=== PATIENT | male | born 1970 | race Caucasian/White ===

== ENCOUNTER 2021-09-10 19:17 | Emergency (ER) | payer OTHER ==
[2021-09-10] MEDS ORDERED: ACETAMINOPHEN TAB 500 MG TAB PO STA (21:47)
[2021-09-10] MEDS ORDERED: SODIUM CHLORIDE 0.9% 50 ML IVPB ONE (22:30)
[2021-09-10] MEDS ORDERED: BAMLANIVIMAB (EUA) 700 MG, ETESEVIMAB (EUA) 1,400 MG in SODIUM CHLORIDE 0.9% 50 ML IVPB ONE (23:00)
--- NOTE | 2021-09-10 23:31 | ED ---
General Adult HPI - General Chief complaint: Upper Respiratory Infection Stated complaint: chills, headache, body aches Time Seen by Provider: 09/10/21 20:51 Source: patient Mode of arrival: ambulatory Limitations: no limitations - History of Present Illness Initial comments: This is a 50-year-old male who presents to the emergency department this evening with complaints of fever, chills, body aches, and cough. Patient states his symptoms began 5-7 days. Has been taking OTC medications with minimal improvement. Endorses alteration in taste and smell. He has not received the Covid vaccinate and reports recent exposure. Denies dizziness, shortness of breath, chest pain, abdominal pain, nausea, vomiting, diarrhea, or dysuria. - Related Data Home Medications Medication Instructions Recorded Confirmed Acetaminophen Tab [Tylenol Tab] 1,000 mg PO Q6H PRN 09/10/21 09/10/21 D-Methorphan/PE/Acetaminophen 2 cap PO Q6H PRN 09/10/21 09/10/21 [Vicks Dayquil Liquicaps] Multivitamins, Thera [Multivitamin 1 tab PO DAILY 09/10/21 09/10/21 (formulary)] traZODone HCL 150 mg PO HS 09/10/21 09/10/21 valACYclovir HCL [Valtrex] 1,000 mg PO TID PRN 09/10/21 09/10/21 Allergies Allergy/AdvReac Type Severity Reaction Status Date / Time No Known Allergies Allergy Verified 09/10/21 23:32 Review of Systems ROS Statement: Those systems with pertinent positive or pertinent negative responses have been documented in the HPI. ROS Other: All systems not noted in ROS Statement are negative. Past Medical History Past Medical History: No Reported History History of Any Multi-Drug Resistant Organisms: None Reported Past Surgical History: Orthopedic Surgery Past Psychological History: No Psychological Hx Reported Smoking Status: Former smoker Past Alcohol Use History: Occasional Past Drug Use History: None Reported General Exam Limitations: no limitations (Well-developed, well-nourished male in no acute distress. Initial temperature 99.2, pulse 83, respirations 20, blood pressure 134/63, pulse ox 98% on room air.) General appearance: alert, in no apparent distress ENT exam: Present: normal exam, normal oropharynx, mucous membranes moist Respiratory exam: Present: normal lung sounds bilaterally, other (Nonproductive congested cough noted). Absent: respiratory distress, wheezes, rales, rhonchi, stridor Cardiovascular Exam: Present: regular rate, normal rhythm, normal heart sounds. Absent: systolic murmur, diastolic murmur, rubs, gallop, clicks GI/Abdominal exam: Present: soft, normal bowel sounds. Absent: distended, tenderness, guarding, rebound, rigid Back exam: Absent: CVA tenderness (R), CVA tenderness (L) Neurological exam: Present: alert, oriented X3, CN II-XII intact Psychiatric exam: Present: normal affect, normal mood Skin exam: Present: warm, dry, intact, normal color. Absent: rash Course Vital Signs 09/10/21 09/11/21 19:37 00:43 Temperature 99.2 F 98.8 F Pulse Rate 83 78 Respiratory 20 18 Rate Blood Pressure 134/63 113/87 O2 Sat by Pulse 98 98 Oximetry Medical Decision Making - Medical Decision Making 50-year-old male presents to the emergency department for evaluation of fever, chills, cough, and altered taste and smell. Symptoms began 5-7 days ago. Upon exam, patient is well-appearing and in no acute distress. He is afebrile, not tachypneic, nor tachycardic. SpO2 is 95-100% on room air. Denies shortness of breath or tightness in his chest. Covid test is positive. Monoclonal antibody infusion was discussed with patient, he is agreeable to this. Tolerated infusion without any adverse side effects. Patient will be discharged home to follow up with his primary care provider. Instructed to alternate Tylenol and Motrin as needed for fever. Return parameters were discussed in detail. Patient verbalizes understanding and agrees with this plan. - Lab Data Lab Results 09/10/21 Range/Units 19:41 Coronavirus (PCR) Detected A (Not Detectd) Disposition Clinical Impression: COVID-19, Fever Disposition: HOME SELF-CARE Condition: Stable Instructions (If sedation given, give patient instructions): Coronavirus Disease 2019 (COVID-19), Fever in Adults (ED) Additional Instructions: Rest. Increase fluids. Take Vitamin C, D, and Zinc. Follow up with your PCP for a recheck. Return to the Emergency Department with any new, worsening, or concerning symptoms. Is patient prescribed a controlled substance at d/c from ED?: No Referrals: Carolina Viveros MD [Primary Care Provider] - 1-2 days Time of Disposition: 00:30
[2021-09-11 00:45] VITALS: BP 113/87; PULSE 78; RESP 18; TEMP 98.8
== END 2021-09-11 00:44 | disposition home or self-care (01) ==
LOC: EC 19:17
DX: U07.1 COVID-19 (principal); Z87.891 Personal history of nicotine dependence
CPT/HCPCS: 99283; M0245; 87635

== ENCOUNTER 2023-02-20 11:34 | Emergency (ER) | payer OTHER ==
[2023-02-20 11:55] VITALS: RESP 18; TEMP 97.6
[2023-02-20] MEDS ORDERED: DIPH,PERTUS(ACELL)TETVAC-LF 0.5 ML VIAL IM ONE (12:38)
[2023-02-20] MEDS ORDERED: LIDOCAINE 1% INJ 10MG/ML (30 ML VIAL-PF) SQ ONE (12:38)
--- NOTE | 2023-02-20 12:49 | ED ---
Upper Extremity HPI - General Chief Complaint: Extremity Injury, Upper Stated Complaint: thrumb crushed Time Seen by Provider: 02/20/23 12:24 Source: patient, RN notes reviewed Mode of arrival: ambulatory Limitations: no limitations - History of Present Illness Initial Comments: 52-year-old male presents emergency Department chief complaint of right thumb injury. Patient states that he was hammering a piece of metal states he missed struck his thumb. Patient states he is sent over from [place] for evaluation. He is unsure when his last tetanus was. Patient does have a laceration noted. Denies any paresthesias patient offers no other complaints. - Related Data Home Medications Medication Instructions Recorded Confirmed Acetaminophen Tab [Tylenol Tab] 1,000 mg PO Q6H PRN 09/10/21 09/10/21 D-Methorphan/PE/Acetaminophen 2 cap PO Q6H PRN 09/10/21 09/10/21 [Vicks Dayquil Liquicaps] Multivitamins, Thera [Multivitamin 1 tab PO DAILY 09/10/21 09/10/21 (formulary)] traZODone HCL 150 mg PO HS 09/10/21 09/10/21 valACYclovir HCL [Valtrex] 1,000 mg PO TID PRN 09/10/21 09/10/21 Previous Rx's Medication Instructions Recorded Cephalexin [Keflex] 500 mg PO Q6HR #28 cap 02/20/23 Ibuprofen [Motrin] 600 mg PO Q8HR PRN #20 tab 02/20/23 Allergies Allergy/AdvReac Type Severity Reaction Status Date / Time No Known Allergies Allergy Verified 02/20/23 11:55 Review of Systems ROS Statement: Those systems with pertinent positive or pertinent negative responses have been documented in the HPI. ROS Other: All systems not noted in ROS Statement are negative. Past Medical History Past Medical History: No Reported History History of Any Multi-Drug Resistant Organisms: None Reported Past Surgical History: Orthopedic Surgery Past Psychological History: No Psychological Hx Reported Smoking Status: Current every day smoker Past Alcohol Use History: Rare Past Drug Use History: None Reported General Exam Limitations: no limitations General appearance: alert, in no apparent distress Head exam: Present: atraumatic, normocephalic, normal inspection Respiratory exam: Present: normal lung sounds bilaterally. Absent: respiratory distress, wheezes, rales, rhonchi, stridor Cardiovascular Exam: Present: regular rate, normal rhythm, normal heart sounds. Absent: systolic murmur, diastolic murmur, rubs, gallop, clicks Extremities exam: Present: other (Left thumb distal tip there is near skin avulsion, irregular laceration approximately 2 cm) Skin exam: Present: warm, dry, intact, normal color. Absent: rash Course Vital Signs 02/20/23 02/20/23 11:53 14:49 Temperature 97.6 F 97.6 F Pulse Rate 67 53 L Respiratory 18 18 Rate Blood Pressure 129/94 137/87 O2 Sat by Pulse 98 99 Oximetry Procedures - Laceration Laceration #1 Consent Obtained: verbal consent Indication: laceration Site: hand (Right thumb) Size (cm): 2 Description: stellate, irregular, contaminated Depth: simple, single layer Anesthetic Used: lidocaine 1%, without epi Anesthesia Technique: local infiltration Amount (mls): 4 Pre-repair: wound explored, irrigated extensively, deep structures intact Type of Sutures: nylon Size of Sutures: 4-0 Number of Sutures: 5 Technique: simple, interrupted Patient Tolerated Procedure: well, no complications Medical Decision Making - Medical Decision Making Was pt. sent in by a medical professional or institution (, PA, PRODUCT MANAGEMENT ANALYST, urgent care, hospital, or [place] [facility] facility...) When possible be specific @ -[facility] Did you speak to anyone other than the patient for history (EMS, parent, family, police, friend...)? What history was obtained from this source @ -No Did you review nursing and triage notes (agree or disagree)? Why? @ -I reviewed and agree with nursing and triage notes Were old charts reviewed (outside hosp., previous admission, EMS record, old EKG, old radiological studies, urgent care reports/EKG's, [place] [facility] facility records)? Report findings @ -No old charts were reviewed Differential Diagnosis (chest pain, altered mental status, abdominal pain women, abdominal pain men, vaginal bleeding, weakness, fever, dyspnea, syncope, headache, dizziness, GI bleed, back pain, seizure, CVA, palpatations, mental health, musculoskeletal)? @ -Thumb fracture, thumb laceration, thumb contusion, subungual hematoma EKG interpreted by me (3pts min.). @ -None X-rays interpreted by me (1pt min.). @ -X-ray of the right thumb shows avulsion fracture CT interpreted by me (1pt min.). @ -None done U/S interpreted by me (1pt. min.). @ -None done What testing was considered but not performed or refused? (CT, X-rays, U/S, labs)? Why? @ -None What meds were considered but not given or refused? Why? @ -None Did you discuss the management of the patient with other professionals (professionals i.e. DrBrodie, PA, PRODUCT MANAGEMENT ANALYST, lab, RT, psych nurse, criminal justice social worker, manager medical writing, teacher, information security officer, mental health case manager)? Give summary @ -No Was smoking cessation discussed for >3mins.? @ -No Was critical care preformed (if so, how long)? @ -No Were there social determinants of health that impacted care today? How? (Homelessness, low income, unemployed, alcoholism, drug addiction, transportation, low edu. Level, literacy, decrease access to med. care, snf, rehab)? @ -No Was there de-escalation of care discussed even if they declined (Discuss DNR or withdrawal of care, Hospice)? DNR status @ -No What co-morbidities impacted this encounter? (DM, HTN, Smoking, COPD, CAD, Cancer, CVA, ARF, Chemo, Hep., AIDS, mental health diagnosis, sleep apnea, morbid obesity)? @ -None Was patient admitted / discharged? Hospital course, mention meds given and route, prescriptions, significant lab abnormalities, going to OR and other pertinent info. @ -Discharge patient had thumb laceration, fracture on x-ray patient was updated on tetanus, given discharged with Keflex sutures tacked down the area with irrigation prior. Patient will have recheck with [facility] Undiagnosed new problem with uncertain prognosis? @ -No Drug Therapy requiring intensive monitoring for toxicity (Heparin, Nitro, Insulin, Cardizem)? @ -No Were any procedures done? @ -Yes laceration repair Diagnosis/symptom? @ -Right thumb laceration, open fracture Acute, or Chronic, or Acute on Chronic? @ -Acute Uncomplicated (without systemic symptoms) or Complicated (systemic symptoms)? @ -Uncomplicated Side effects of treatment? @ -No Exacerbation, Progression, or Severe Exacerbation? @ -No Poses a threat to life or bodily function? How? (Chest pain, [place], [place], pneumonia, PE, COPD, DKA, ARF, appy, cholecystitis, CVA, Diverticulitis, Homicidal, Suicidal, threat to staff... and all critical care pts) @ -No Disposition Clinical Impression: Laceration of right thumb, Fracture of thumb, right open Disposition: HOME SELF-CARE Condition: Stable Instructions (If sedation given, give patient instructions): Care For Your Stitches (ED), Finger Laceration (ED) Additional Instructions: Have sutures removed in 10 days. Please return to the Emergency Department if symptoms worsen or any other concerns. Prescriptions: Cephalexin [Keflex] 500 mg PO Q6HR #28 cap Ibuprofen [Motrin] 600 mg PO Q8HR PRN #20 tab PRN Reason: Pain Is patient prescribed a controlled substance at d/c from ED?: No Referrals: Carolina Viveros MD [Primary Care Provider] - 1-2 days Liliana Rodriguez DO [Doctor of Osteopathic Medicine] - 1-2 days Time of Disposition: 13:31
--- NOTE | 2023-02-20 12:55 | XR ---
EXAMINATION TYPE: XR finger RT DATE OF EXAM: 02/20/2023 COMPARISON: NONE HISTORY: Injury with pain. TECHNIQUE: 3 views right thumb. FINDINGS: There is acute displaced chip type fracture of the distal aspect of the first distal phalan x with 3 x 1 mm bony fragment. Mild narrowing and spurring first interphalangeal joint is present. Ov erlying soft tissues unremarkable. Moderate narrowing at base of first metacarpal is seen. IMPRESSION: As above.
[2023-02-20] MEDS ORDERED: ceFAZolin 1,000 MG VIAL (IM USE) IM STA (13:00)
[2023-02-20 14:57] VITALS: BP 137/87; PULSE 53
== END 2023-02-20 15:10 | disposition home or self-care (01) ==
LOC: EC 11:34
DX: S62.501B Fracture of unspecified phalanx of right thumb, initial encounter for open fracture (principal); F17.200 Nicotine dependence, unspecified, uncomplicated; Z23 Encounter for immunization; W26.8XXA Contact with other sharp object(s), not elsewhere classified, initial encounter
CPT/HCPCS: 73140; 90715; 99283; 90471; 96372; 12001; J0690; J2001